=== PATIENT | female | born 1940 ===

== ENCOUNTER 2017-11-26 10:48 | Outpatient (CLI) | payer MEDICARE ==
--- NOTE | 2017-11-26 20:31 | XRay Report ---
FINAL REPORT EXAM: XR KNEE BILAT 4+V HISTORY: BILATERAL KNEE PAIN TECHNIQUE: Four views of the bilateral knees, 8 views total PRIORS: None. FINDINGS: Right: The bones appear diffusely demineralized. There is severe narrowing of the lateral joint and moderate narrowing of the medial joint with associated osteophyte formation. There is mild narrowing of the patellofemoral joint with osteophyte formation.. There is no evidence of acute fracture. There is meniscal chondrocalcinosis. The soft tissues are unremarkable. Left: The bones appear diffusely demineralized. There is moderate to severe narrowing of the lateral joint and moderate narrowing of the medial joint with associated osteophyte formation. There is mild narrowing of the patellofemoral joint with osteophyte formation. There is no evidence of acute fracture. There is meniscal chondrocalcinosis. The soft tissues are unremarkable. IMPRESSION: No evidence of acute fracture or subluxation. 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
== END 2017-11-26 10:49 | disposition home or self-care (01) ==
LOC: SPVIMAG 10:48
PROVIDERS: ATTEND Orthopaedic Surgery Sports Medicine
DX: M17.0 Bilateral primary osteoarthritis of knee (principal); M11.262 Other chondrocalcinosis, left knee; M11.261 Other chondrocalcinosis, right knee